=== PATIENT | male | born 1980 | race Caucasian/White ===

== ENCOUNTER 2021-01-05 11:10 | Inpatient (IN) | payer OTHER ==
[2021-01-04 23:45] VITALS: BP 93/57
[~2021-01-05] VITALS: Ht 190.5 cm; Wt 93.2 kg
[2021-01-05 12:22] LABS: BASOPHILS % (AUTO) 0.4 % (0.0-2.0); EOSINOPHILS % (AUTO) 0.8 % (1.0-6.0); HEMATOCRIT 50.8 % (41-53); HEMOGLOBIN 17.8 g/dL (13.5-17.5); MEAN CORPUSCULAR HGB CONC 35.1 G/dL (31.0-37.0); MEAN CORPUSCULAR VOLUME 97 fL (80-100); MONOCYTES # (AUTO) 0.3 K/uL (0.1-1.0); MONOCYTES % (AUTO) 4.1 % (2.0-9.0); NEUTROPHILS # (AUTO) 5.2 K/uL (1.8-7.7); NEUTROPHILS % (AUTO) 79.7 % (40.0-70.0); PLATELET COUNT (AUTO) 296 K/uL (150-450); RED BLOOD CELL COUNT(AUTO) 5.24 MIL/uL (4.50-5.90); RED CELL DISTRIBUTION WIDTH 12.8 % (11.5-14.5)
[2021-01-05 12:35] LABS: ANION GAP 11 mmol/L (8-16); CALCIUM, TOTAL 9.2 mg/dL (8.8-10.5); CARBON DIOXIDE 25 mmol/L (22-29); CHLORIDE 102 mmol/L (98-107); CREATININE 1.02 mg/dL (0.60-1.30); GLOMERULAR FILTR. RATE CALC > 60 mL/min (>60); GLUCOSE,RANDOM 103 mg/dL (70-110); POTASSIUM 4.1 mmol/L (3.5-5.1); SODIUM SERUM 138 mmol/L (136-145); UREA NITROGEN, BLOOD 15 mg/dL (7-18)
[2021-01-05 12:40] LABS: ALANINE AMINOTRANSFERASE 28 U/L (12-78); ALBUMIN 4.1 g/dL (3.4-5.0); ALKALINE PHOSPHATASE 128 U/L (46-116); ASPARTATE AMINOTRANSFERASE 25 U/L (15-37)
[2021-01-05] MEDS ORDERED: MULTIVITAMINS WITH MINERALS, THERAPEUTIC TABLET PO SCH (13:45)
[2021-01-05] MEDS ORDERED: ONDANSETRON HCL 4 MG/2 ML VIAL IVP PRN (13:45)
[2021-01-05] MEDS ORDERED: ALBUTEROL SULFATE 2.5 MG/0.5 ML NEB SOLUTION NEB PRN (13:45)
[2021-01-05] MEDS ORDERED: BISACODYL 10 MG RECTAL RECTAL SUPPOSITORY PR PRN (13:45)
[2021-01-05] MEDS ORDERED: 0.9% SODIUM CHLORIDE 10 ML SYRINGE IVP PRN (13:45)
[2021-01-05] MEDS ORDERED: IPRATROPIUM BROMIDE 0.5 MG/2.5 ML NEB SOLUTION NEB PRN (13:45)
[2021-01-05] MEDS ORDERED: MAGNESIUM HYDROXIDE SUSPENSION 30 ML UDCUP PO PRN (13:45)
[2021-01-05 13:46] LABS: COVID AG,FIA SOURCE NASOPHARYNGEAL
[2021-01-05] MEDS: THIAMINE 100 MG TABLET PO SCH (13:52)
[2021-01-05] MEDS: FOLIC ACID 1 MG TABLET PO SCH (13:52)
[2021-01-05 15:15] VITALS: BP 110/70
[2021-01-05] MEDS: ACETAMINOPHEN 325 MG TABLET PO PRN (15:16)
[2021-01-05] MEDS: FAMOTIDINE 20 MG TABLET PO SCH (20:14)
[2021-01-05 20:36] VITALS: BP 99/60
[2021-01-05 23:45] VITALS: BP 93/57
[2021-01-05 23:46] VITALS: BP 103/53
[2021-01-06] MEDS ORDERED: POTASSIUM CHL 10 MEQ/WATER 50 ML IV PRN (00:45)
[2021-01-06] MEDS ORDERED: POTASSIUM CHLORIDE 20 MEQ ER TABLET PO PRN (00:45)
[2021-01-06] MEDS: LORazepam 2 MG TABLET PO PRN ×4 (00:49→23:22)
[2021-01-06] MEDS: 1: MAGNESIUM SULFATE 2 GM, MVI, ADULT NO.1 WITH VIT K 10 ML, THIAMINE 100 MG, FOLIC ACID IV SCH ×15 (01:01→21:20)
[2021-01-06 01:50] VITALS: BP 112/63
[2021-01-06 02:50] VITALS: BP 104/59
[2021-01-06 04:11] VITALS: BP 113/59
[2021-01-06 06:32] LABS: BASOPHILS % (AUTO) 0.8 % (0.0-2.0); EOSINOPHILS % (AUTO) 1.9 % (1.0-6.0); HEMATOCRIT 50.4 % (41-53); HEMOGLOBIN 17.3 g/dL (13.5-17.5); LYMPHOCYTES # (AUTO) 1.5 K/uL (1.0-4.8); LYMPHOCYTES % (AUTO) 20.1 % (22.0-44.0); MEAN CORPUSCULAR HEMOGLOBIN 34.1 pg (26.0-34.0); MEAN CORPUSCULAR HGB CONC 34.5 G/dL (31.0-37.0); MEAN CORPUSCULAR VOLUME 99 fL (80-100); MONOCYTES # (AUTO) 0.6 K/uL (0.1-1.0); MONOCYTES % (AUTO) 8.2 % (2.0-9.0); NEUTROPHILS # (AUTO) 5.1 K/uL (1.8-7.7); PLATELET COUNT (AUTO) 284 K/uL (150-450); RED BLOOD CELL COUNT(AUTO) 5.08 MIL/uL (4.50-5.90)
[2021-01-06 06:40] LABS: ANION GAP 9 mmol/L (8-16); CALCIUM, TOTAL 8.8 mg/dL (8.8-10.5); CARBON DIOXIDE 28 mmol/L (22-29); CHLORIDE 102 mmol/L (98-107); CREATININE 1.15 mg/dL (0.60-1.30); GLOMERULAR FILTR. RATE CALC > 60 mL/min (>60); GLUCOSE,RANDOM 96 mg/dL (70-110); POTASSIUM 4.3 mmol/L (3.5-5.1); SODIUM SERUM 139 mmol/L (136-145); UREA NITROGEN, BLOOD 16 mg/dL (7-18)
[2021-01-06 08:20] VITALS: BP 108/64
[2021-01-06] MEDS: THIAMINE 100 MG TABLET PO SCH (09:10)
[2021-01-06] MEDS: FAMOTIDINE 20 MG TABLET PO SCH ×2 (09:10→20:08)
[2021-01-06] MEDS: FOLIC ACID 1 MG TABLET PO SCH (09:10)
[2021-01-06 20:18] VITALS: BP 108/64
[2021-01-06 23:20] VITALS: BP 103/55
[2021-01-07] MEDS: ACETAMINOPHEN 325 MG TABLET PO PRN ×2 (03:06→19:33)
[2021-01-07] MEDS ORDERED: LORazepam 2 MG TABLET PO PRN (07:00)
[2021-01-07 07:39] VITALS: BP 106/68
[2021-01-07] MEDS: FAMOTIDINE 20 MG TABLET PO SCH ×2 (09:10→19:33)
[2021-01-07] MEDS: LORazepam 2 MG TABLET PO SCH ×2 (09:11→13:00)
[2021-01-07] MEDS: 1: MAGNESIUM SULFATE 2 GM, MVI, ADULT NO.1 WITH VIT K 10 ML, THIAMINE 100 MG, FOLIC ACID IV SCH ×5 (09:14)
[2021-01-07] MEDS ORDERED: LORazepam 2 MG/ML VIAL IVP PRN (14:45)
[2021-01-07 15:28] VITALS: BP 95/55
[2021-01-07] MEDS ORDERED: HALOPERIDOL LACTATE 5 MG/ML VIAL IM PRN (16:30)
[2021-01-07 19:37] VITALS: BP 98/76
[2021-01-07] MEDS ORDERED: LORazepam 2 MG/ML VIAL IM PRN (20:45)
[2021-01-07 23:33] VITALS: BP 113/55
[2021-01-08 04:40] VITALS: BP 131/67
[2021-01-08 08:17] VITALS: BP 106/64
[2021-01-08] MEDS: FAMOTIDINE 20 MG TABLET PO SCH (08:42)
[2021-01-08 12:30] LABS: AMPHET/METH SCREEN,URINE NEGATIVE (NEGATIVE); BARBITURATE SCREEN, URINE NEGATIVE (NEGATIVE); BENZODIAZEPINES SCREEN,URINE NEGATIVE (NEGATIVE); CANNABINOID SCREEN,URINE POSITIVE (NEGATIVE); COCAINE SCREEN,URINE NEGATIVE (NEGATIVE); METHADONE SCREEN, URINE NEGATIVE (NEGATIVE); OPIATE SCREEN,URINE NEGATIVE (NEGATIVE)
[2021-01-08 12:31] LABS: PHENCYCLIDINE SCREEN,URINE NEGATIVE (NEGATIVE)
[2021-01-09] MEDS ORDERED: LORazepam 1 MG TABLET PO PRN (07:00)
[2021-01-09] MEDS ORDERED: LORazepam 1 MG TABLET PO SCH (09:00)
[2021-01-10] MEDS ORDERED: LORazepam 1 MG TABLET PO PRN (07:00)
== END 2021-01-08 13:05 | DRG 897 ==
LOC: EMS 11:13 → 6S 14:22
PROVIDERS: ADMIT Internal Medicine; ATTEND Internal Medicine
PROC: 2W3HX1Z Immobilization of Left Thumb using Splint (ICD-10-PCS; principal; 2021-01-05)
DX: F10.231 Alcohol dependence with withdrawal delirium (principal); F33.2 Major depressive disorder, recurrent severe without psychotic features; R45.851 Suicidal ideations; F17.210 Nicotine dependence, cigarettes, uncomplicated; W19.XXXA Unspecified fall, initial encounter; R56.9 Unspecified convulsions; F41.9 Anxiety disorder, unspecified; Z20.822 Contact with and (suspected) exposure to COVID-19; S62.512A Displaced fracture of proximal phalanx of left thumb, initial encounter for closed fracture; Y90.9 Presence of alcohol in blood, level not specified; Y93.89 Activity, other specified; Y92.89 Other specified places as the place of occurrence of the external cause; Y99.8 Other external cause status
CPT/HCPCS: 80307; 87426; 93005; 99285; G0480; J1630; J2405; J3411; J3475; J3490; J7030